=== PATIENT | male | born 1975 | race Caucasian/White ===

== ENCOUNTER → 2017-08-16 | Outpatient (CLI) | payer OTHER ==
[~2017-08-16] MED LIST: AMITRIPTYLINE H10 M3 PO; AUGMENTIN 875875 MG PO; BENTYL 20 MG TA20 M1 PO; CHANTIX0.5 MG PO; DICLOFENAC SODI75 MG PO; MEDROLDOSEPACK PO; NAPROSYN500 MG PO; NEURONTIN 300300 M1 PO; NORCO 10-325 T1 EACH PO; OMEPRAZOLE20 M1 PO; OSELB75 PO; PHENERGAN 25 MG25 M1 PO; PRILOSEC; PRILOSEC 20 MG20 MG PO; RANITIDINE HCL300 M1 PO; TYLENOL EX-STR500 M2 PO; ULTRAM 50MG TAB50 MG PO; VOLTAREN; ZOFRAN ODT4 MG PO
--- NOTE | 2017-08-22 08:48 | PAINCON ---
[address] [address] PAIN MANAGEMENT CONSULTATION Name: KATHERINE WARREN SR Room: [facility]I Sheron#: [id number] Admission: 08/16/17 Attend Phys: Jonathan Leonard MD Discharge: Date of : 71 Report #: [id number] THIS REPORT FOR: //name// CC: Samanta Gasca DATE OF SERVICE: 08/16/2017 CHIEF COMPLAINT: "Pain in my neck that goes down into my right shoulder." FOLLOWUP HISTORY: The patient is a 42-year-old gentleman. 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 He states that he has had some pain in his shoulder and neck area since the . He has noted worsening of his pain and discomfort. He has used Voltaren over the years. He found that this continue to keep his pain at a manageable level. Recently had some problems with his GI tract. The patient has been told that he had irritable bowel syndrome. He had some problems with his bowel, which necessitated removing a section of this. This was in 06/2017. His GI doctor has requested that he not take nonsteroidal anti-inflammatory medications because of the worsening to his GI tract. He has not had surgery on his neck. He has not had any significant trauma to his neck. He does note that he wakes up at night with severe pain in his arms. He is able to sleep for a few hours and then is awakened by pain and discomfort with numbness and tingling radiating down into the left and right side. He has used hydrocodone which has provided some relief, but still rates his pain as a 7/10. He continues to remain gainfully employed. It is more problematic now that he is unable to take his nonsteroidal anti-inflammatory medication. ALLERGIES: No known drug allergies. CURRENT MEDICATIONS: Hydrocodone 10, Prilosec 40 mg b.i.d., Chantix has been used for the last 2 months. PAST MEDICAL HISTORY: Hypertension, GI irritation, ulcerative colitis/irritable bowel, history of ulcers, joint disease/arthritis, acid reflux. PAST SURGICAL HISTORY: Left knee surgery at age 15, one-half of colon removed 06/2017. SOCIAL HISTORY: He is a face painter, continues to work. He does smoke cigarettes one-third of a pack per day. Denies use of recreational drugs. REVIEW OF SYSTEMS: Questionnaire 14-point review indicates weight change, decreased appetite, fatigue, weakness, headaches, asthma, joint pain, joint stiffness, weakness of muscles and joints, cramping, back pain, difficulty walking, numbness and tingling sensation involving the left [place] [address] PAIN MANAGEMENT CONSULTATION Name: KATHERINE WARREN SR Room: [facility] Sheron#: [id number] Admission: 08/16/17 Attend Phys: Jonathan Leonard MD Discharge: Date of : 71 Report #: [id number] LABORATORY DATA: MRI of the cervical spine dated 08/03/2017 reveals right-sided cervical radicular pain. At C3/C4, there is no significant disk bulge or protrusion. No significant general spinal canal or neural foraminal stenosis. At C5/C6, there is a small broad-based posterior disk bulge resulting in mild thecal sac stenosis and effacement of the thecal sac and spinal cord. There is [id number] bilateral neural foraminal stenosis due to uncovertebral and facet arthrosis. At C6-C7, there is mild diffuse posterior disk bulge resulting in mild thecal sac stenosis. At C7-T1, no significant protrusion or bulge. PHYSICAL EXAMINATION: VITAL SIGNS: Blood pressure 150/93, heart rate 80, respiratory rate 16, room air saturation is 97, temperature 98.4, height 5 feet 9 inches, weight 187 pounds, BMI is 27.7. HEENT: Unremarkable. No ears, eyes, nose complaints. Moist buccal area. NECK: No JVD, bruits, or adenopathy. CHEST: Clear to auscultation. HEART: Regular rate. ABDOMEN: Nontender, bowel sounds present. LOWER EXTREMITIES: Nontender, muscles strength is judged to be 5/5 in the major muscle groups in lower extremities. Patellar reflexes are trace, ankle reflexes trace bilaterally. Pulses are present. No edema. NEUROLOGIC: Cognitive and oriented x 3. The patient complains of some numbness and tingling in his arms and hands. Deep tendon reflexes are +1 in the right and left biceps, trace for triceps, trace brachial radialis, muscle strength is judged to be 5/5 in the major muscle groups of the upper extremity. The patient has numbness and tingling, pins and needle sensation in his fingers, left and right in the C5-C6 distribution. Sensation to cold and pinprick were symmetrical and relatively normal. Spurling's test increased pain and discomfort with radiation down into the right arm. IMPRESSION: 1. Cervical radiculopathy with pain and discomfort in the right cervical region with radiation down into the right arm, forearm and hand. 2. Use of tobacco. 3. History of colitis, status post partial colon removal in 06/2017. 4. Acid reflux. 5. Arthritis. RECOMMENDATIONS: We discussed treatment options with the patient. At this juncture, a thorough review of his MRI was provided. We reviewed the MRI on the screen pointing out the pathology involved in his MRI. We discussed the use of nonsteroidal anti-inflammatory medications and their role in [place] [address] PAIN MANAGEMENT CONSULTATION Name: MIGUELBKKATHERINE SR Room: [facility]#: [id number] Admission: 08/16/17 Attend Phys: Jonathan Leonard MD Discharge: Date of : 71 Report #: [id number] explained the complications of use of nonsteroidal anti-inflammatory medications in patients with GI problems. The patient has used hydrocodone. He finds that this is somewhat helpful, but still rates his pain as a 7/10. Pain continues to be problematic with his sleep as well as causing problems with his work. We will try a conservative approach. The patient will be given a Medrol Dosepak. Reason and mechanisms for this medication were discussed with the patient in layman's terms. He states that he understands. We will also have the patient take Elavil 10 mg and increase this as he is able to by titrating on a slow basis. This medication can be helpful with neuropathic pain as well as a multitude of other painful conditions. Hopefully, this medication will improve his sleep and pain control. He will also consider use of gabapentin. He will take this 300 mg tablet initially and slowly increase it. He will take the Elavil first. After a few days if he is having no problems, he will then start with gabapentin. Hopefully, he does not have any problems with it. 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 He will try a conservative approach using a Medrol Dosepak. A script designating how to take this medication has been provided. He will call us in a couple weeks and see how things are going. If his pain continues to be problematic, I think it would be reasonable at that juncture to proceed with a cervical epidural steroid injection to help calm down the pain and discomfort, which he is experiencing. We would like to thank you for letting us participate in his care. We hope he continues to improve. <ELECTRONICALLY SIGNED> By: Jonathan Leonard MD 08/22/17 0848 [id number]. Anselmo Leonard MD /[facility]
== END ==
LOC: M.PC 02:09
DX: M47.22 Other spondylosis with radiculopathy, cervical region (principal); I10 Essential (primary) hypertension; K51.80 Other ulcerative colitis without complications; Z87.19 Personal history of other diseases of the digestive system; K31.89 Other diseases of stomach and duodenum; Z90.49 Acquired absence of other specified parts of digestive tract

== ENCOUNTER 2020-03-09 18:19 | Emergency (ER) | payer OTHER ==
[~2020-03-09] VITALS: Ht 177.8 cm; Wt 95.3 kg
[2020-03-09 20:21] LABS: HEMATOCRIT 48.2 % (42.0-52.0); HEMOGLOBIN 17.1 gm/dL (14.0-18.0); MCH 34.1 pg (26.0-34.0); MCHC 35.4 g/dL (28.0-37.0); MCV 96.3 fL (80.0-100.0); MPV 7.9 fl. (7.2-11.1); NUCLEATED RBCS 0 /100WBC; PLATELET COUNT* 333 thou/uL (150-400)
[2020-03-09 20:31] LABS: CALCIUM 9.2 mg/dL (8.5-10.1); CREATININE 1.2 mg/dL (0.6-1.3); POTASSIUM 3.5 mmol/L (3.5-5.1)
[2020-03-09 20:36] LABS: ALBUMIN 4.8 g/dL (3.4-5.0); TOTAL BILIRUBIN 0.7 mg/dL (<0.1-1.0); TOTAL PROTEIN 8.2 g/dL (6.4-8.2)
[2020-03-09 21:03] LABS: ABSOLUTE MONOCYTES 0.1 thou/uL (0.0-1.2); ABSOLUTE NEUTROPHILS 10.9 thou/uL (1.6-8.1); LARGE PLATELETS OCCASIONAL; PLATELET ESTIMATE ADEQUATE
[2020-03-09 21:46] LABS: URINE BILIRUBIN NEGATIVE (Negative); URINE BLOOD NEGATIVE (Negative); URINE CLARITY CLEAR; URINE COLOR YELLOW; URINE GLUCOSE-RANDOM NEGATIVE (Negative); URINE KETONES 2+ (Negative); URINE LEUKOCYTES-REFLEX NEGATIVE (Negative); URINE NITRITE-REFLEX NEGATIVE (Negative); URINE PROTEIN NEGATIVE (Negative); URINE UROBILINOGEN 0.2 E.U./dl (0.2-1.0)
[2020-03-09] MEDS ORDERED: ONDANSETRON ODT4 MG PO (21:52)
[2020-03-09] MEDS ORDERED: NORCO 5-325 TA1 EAC2 PO (21:52)
[2020-03-09] MEDS ORDERED: OMEPRAZOLE 20 M20 M1 PO (21:52)
[2020-03-09] MEDS ORDERED: PEPCID20 MG PO (21:52)
[2020-03-09 22:26] VITALS: BP 150/74
--- NOTE | 2020-03-10 10:37 | EKG ---
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: [facility] : 1975 Requested By: Rome Ibarra Order Number: [id number] Kelly MD: Bismark Weston Measurements Intervals Peetz Rate: 96 P: 53 CA: 163 QRS: 76 QRSD: 101 T: 14 QT: 361 QTc: 457 Interpretive Statements Sinus rhythm with PACs Borderline T abnormalities, inferior leads Baseline wander in lead(s) II,III,aVR,aVF Compared to ECG 01/22/2017 09:58:48 T-wave abnormality now present Electronically Signed On 03-10-2020 10:37:31 CDT by Bismark Weston [email or web address] <ELECTRONICALLY SIGNED> By: Bismark Weston MD, [facility] 03/10/20 1037 1829 1829 Bismark Weston MD, [facility] /EPI
== END 2020-03-09 22:27 | disposition home or self-care (01) ==
LOC: M.ERS 18:19
PROVIDERS: Physician Assistant
DX: R10.13 Epigastric pain (principal); Z20.828 Contact with and (suspected) exposure to other viral communicable diseases; R19.7 Diarrhea, unspecified; K21.9 Gastro-esophageal reflux disease without esophagitis; F17.210 Nicotine dependence, cigarettes, uncomplicated

== ENCOUNTER 2020-04-04 13:15 | Emergency (ER) | payer OTHER ==
[~2020-04-04] VITALS: Ht 175.3 cm; Wt 90.7 kg
[~2020-04-04 13:15] MED LIST changes: +NORCO 5-325 TA1 EAC2 PO; +OMEPRAZOLE 20 M20 M1 PO; +ONDANSETRON ODT4 MG PO; +PEPCID20 MG PO
[2020-04-04] MEDS ORDERED: VOLTAREN GEL 1100 G1 TOP (13:23)
[2020-04-04 14:30] VITALS: BP 108/77
== END 2020-04-04 14:30 | disposition home or self-care (01) ==
LOC: M.ERS 13:15
DX: M25.572 Pain in left ankle and joints of left foot (principal); K21.9 Gastro-esophageal reflux disease without esophagitis; F17.210 Nicotine dependence, cigarettes, uncomplicated